=== PATIENT | female | born 1960 | race Caucasian/White ===

== ENCOUNTER 2021-04-30 05:46 | Inpatient (IN) | payer MEDICARE, MEDICAID ==
[~2021-04-30] VITALS: Ht 162.6 cm; Wt 127.0 kg
[~2021-04-30 05:46] MED LIST: ALB0.5UD IH; AMIT25TA10 PO; BACL20TA PO; DULO60CA65 PO; FLUT1DIS INH; FURO-150 PO; HYDR12.5 PO; LACT1CAP26 PO; LEVA15HF4 INH; LEVO150T8 PO; METF-436 PO; MONT10TA21 PO; MYCOL15CR TOP; NORCO10T PO; POTA8TAB8 PO; TERB12GE TOP; TOPI50TA PO; VERA180T PO
[2021-04-30 07:18] LABS: BASOPHILS % (AUTO) 0.4 % (0-1); EOSINOPHILS # (AUTO) 0.4 X10'3 (0-0.9); HEMATOCRIT 36.6 % (35.0-45.0); HEMOGLOBIN 11.9 g/dl (12.0-16.0); LYMPHOCYTES # (AUTO) 2.3 X10'3 (1.1-4.8); LYMPHOCYTES % (AUTO) 20.5 % (21-51); MEAN CORPUSCULAR HEMOGLOBIN 28.4 PG (27.0-31.0); MEAN CORPUSCULAR HGB CONC 32.5 g/dL (33.0-36.5); MEAN CORPUSCULAR VOLUME 87.3 FL (78-98); MEAN PLATELET VOLUME 7.2 FL (7.4-10.4); MONOCYTES % (AUTO) 8.7 % (2-12); NEUTROPHILS # (AUTO) 7.3 X10'3 (1.8-7.7); NEUTROPHILS % (AUTO) 66.4 % (42-75); PLATELET COUNT 240 X10'3 (140-440)
[2021-04-30 07:33] LABS: CLARITY,URINE CLOUDY (Clear); COLOR,URINE YELLOW (Yellow); GLUCOSE, URINE NEGATIVE (Neg); KETONES,URINE NEGATIVE (Neg); LEUKOCYTE ESTERASE ,URINE NEGATIVE (Neg); NITRITES, URINE POSITIVE (Neg); OCCULT BLOOD,URINE TRACE-INTACT (Neg); PH,URINE 8.5 (4.8-8.0); PROTEIN,URINE NEGATIVE (Neg); UROBILINOGEN,URINE 0.2 E.U/dL (0.2-1.0)
[2021-04-30 07:34] LABS: UA COLLECTION TYPE VOIDED
[2021-04-30 07:41] LABS: ALANINE AMINOTRANSFERASE 27 U/L (12-78); ALBUMIN 3.3 G/DL (3.4-5.0); ALBUMIN/GLOBULIN RATIO 0.9 (1.1-1.5); ALKALINE PHOSPHATASE 101 IU/L (46-116); ANION GAP 9 (8-16); ASPARTATE AMINO TRANSFERASE 35 U/L (10-37); BILIRUBIN,TOTAL 0.8 MG/DL (0.1-1.0); BLOOD UREA NITROGEN 22 MG/DL (7-18); BUN/CREATININE RATIO 17.5 (6.6-38.0); CALCIUM 8.7 MG/DL (8.5-10.1); CHLORIDE 103 MMOL/L (99-107); CREATININE 1.26 MG/DL (0.40-0.90); ETHANOL < 0.010 GM/DL (0.0-0.010); GLUCOSE 123 MG/DL (70-104); SODIUM 141 MMOL/L (135-145); TOTAL CARBON DIOXIDE 29.5 MMOL/L (24-32); eGFR 43 ML/MIN
[2021-04-30 07:42] LABS: POTASSIUM 2.9 MMOL/L (3.5-5.1)
[2021-04-30 07:45] LABS: TRIPLE PHOSPHATE CRYST 4+ /HPF (NEGATIVE)
[2021-04-30 07:50] LABS: BACTERIA,URINE 4+ /HPF (Neg)
[2021-04-30 07:51] LABS: WBC,URINE 0-4 /HPF (0-4)
[2021-04-30 07:53] LABS: RBC,URINE 0-2 /HPF (0-2)
[2021-04-30 07:54] LABS: SQUAMOUS EPITHELIAL CELL,UR MODERATE /LPF (FEW)
[2021-04-30 07:57] LABS: URINE AMPHETAMINE SCREEN NEGATIVE (Neg); URINE BARBITUATE SCREEN NEGATIVE (Neg); URINE BENZODIAZEPINES SCREEN NEGATIVE (Neg); URINE CANNABINOID SCREEN NEGATIVE (Neg); URINE COCAINE SCREEN NEGATIVE (Neg); URINE METHADONE SCREEN NEGATIVE (Neg); URINE OPIATE SCREEN POSITIVE (Neg); URINE PHENCYCLIDINE SCREEN NEGATIVE (Neg)
[2021-04-30] MEDS ORDERED: POTASSIUM CHLORIDE 20 MEQ/15 ML oral solution PO ONE (08:00)
[2021-04-30] MEDS ORDERED: potassium Cl 10 mEq/100mL bag IV ONE (08:00)
[2021-04-30] MEDS ORDERED: acetaminophen 325mg tablet PO PRN (08:10)
[2021-04-30] MEDS ORDERED: HYDROcodone/acetaminophen 5mg/325mg tablet PO PRN (08:10)
[2021-04-30] MEDS ORDERED: potassium Cl 20 mEq SR tablet PO PRN (08:10)
[2021-04-30] MEDS ORDERED: mag hydrox/Alum hydrox/simeth 30ml oral suspension PO PRN (08:10)
[2021-04-30] MEDS ORDERED: ondansetron/PF 4mg/2ml inj IV PRN (08:10)
[2021-04-30] MEDS ORDERED: magnesium 2GM in 50ml NS 50 ML IV PRN (08:10)
[2021-04-30] MEDS ORDERED: potassium CL 10mEq/100ml bag 100 ML IV PRN (08:10)
[2021-04-30] MEDS ORDERED: morphine 2 MG/ML inj. syringe IV PRN (08:10)
[2021-04-30] MEDS ORDERED: magnesium Cl slow-release 64mg tablet PO PRN (08:10)
[2021-04-30] MEDS ORDERED: magnesium hydroxide 30ml (MOM) UD suspension PO PRN (08:10)
[2021-04-30] MEDS ORDERED: magnesium 4gm in 100ml NS 100 ML IV PRN (08:10)
[2021-04-30] MEDS ORDERED: CefTRIAXone 2gm/D5W 50ml BAG 50 ML IV ONE (08:20)
[2021-04-30] MEDS: sodium chloride 0.45% 1,000 ML IV SCH ×2 (09:04→09:05)
[2021-04-30] MEDS: enoxaparin 40mg/0.4ml syringe SUBCUT SCH (09:16)
[2021-04-30 09:21] LABS: MAGNESIUM 2.2 MG/DL (1.5-2.4)
--- NOTE | 2021-04-30 10:13 | NUR ---
Attempted to call report to floor, RN reportedly doing pt care. Will call back in 5-10 mins.
--- NOTE | 2021-04-30 10:33 | NUR ---
Report given to ROSALINO Johnston, pt to go to room 359.
[2021-04-30] MEDS ORDERED: MESSAGE TO PHARMACY PO ONE (11:00)
[2021-04-30] MEDS ORDERED: insulin Lispro (HumaLOG) vial - multi-dose SQ SCH (11:00)
[2021-04-30] MEDS ORDERED: dextrose 50%-water 50ml dispensing syringe IV PRN ×2 (11:00)
[2021-04-30] MEDS ORDERED: glucagon, human recombinant 1mg kit SUBCUT PRN (11:00)
[2021-04-30] MEDS ORDERED: DEXTROSE 15 GM of carb/4 tabs (each vial/BOTTLE has 4 tablets) PO PRN ×2 (11:00)
[2021-04-30 12:14] LABS: HEMOGLOBIN A1C 5.7 % (4.5-6.2)
[2021-04-30] MEDS: HYDROcodone/acetaminophen 10/325mg tab PO PRN ×2 (12:25→17:25)
[2021-04-30 14:17] VITALS: BP 126/57
[2021-04-30] MEDS ORDERED: VERA240C2 PO (15:35)
[2021-04-30] MEDS ORDERED: AMIT100T61 PO (15:35)
[2021-04-30] MEDS ORDERED: GABA300C PO (15:49)
[2021-04-30] MEDS ORDERED: PROM25TA14 PO (15:50)
[2021-04-30] MEDS ORDERED: albuterol 2.5 MG/3 ML nebule NEB PRN (16:00)
[2021-04-30] MEDS ORDERED: HYDROcodone/acetaminophen 10/325mg tab PO PRN (16:00)
[2021-04-30] MEDS: lactobacillus rhamnosus 10,000 MMU CELLS/CAPSULE PO SCH (20:00)
[2021-04-30] MEDS: K and/or MAG REPLACEMENT MC SCH (20:00)
[2021-04-30] MEDS: insulin glargine (Lantus) pen - multi-dose SQ SCH (21:00)
[2021-04-30] MEDS: docusate sod 100mg capsule PO SCH (21:12)
[2021-04-30] MEDS: amitriptyline 50mg tablet PO SCH (21:13)
[2021-04-30] MEDS: duloxetine 30mg CAPSULE.DR PO SCH (21:23)
[2021-04-30] MEDS: budesonide 0.5mg/2ml UD nebule IH SCH (21:32)
[2021-05-01] MEDS: HYDROcodone/acetaminophen 10/325mg tab PO PRN ×3 (03:57→17:10)
[2021-05-01] MEDS: sodium chloride 0.45% 1,000 ML IV SCH ×2 (04:32→16:26)
[2021-05-01 06:14] LABS: BASOPHILS # (AUTO) 0.1 X10'3 (0-0.2); BASOPHILS % (AUTO) 0.6 % (0-1); EOSINOPHILS # (AUTO) 0.6 X10'3 (0-0.9); EOSINOPHILS % (AUTO) 6.5 % (0-6); HEMATOCRIT 34.7 % (35.0-45.0); HEMOGLOBIN 11.4 g/dl (12.0-16.0); LYMPHOCYTES # (AUTO) 2.8 X10'3 (1.1-4.8); MEAN CORPUSCULAR HEMOGLOBIN 28.5 PG (27.0-31.0); MEAN CORPUSCULAR HGB CONC 32.8 g/dL (33.0-36.5); MEAN CORPUSCULAR VOLUME 86.8 FL (78-98); MEAN PLATELET VOLUME 7.5 FL (7.4-10.4); MONOCYTES # (AUTO) 0.7 X10'3 (0-0.9); MONOCYTES % (AUTO) 7.5 % (2-12); NEUTROPHILS # (AUTO) 5.5 X10'3 (1.8-7.7); NEUTROPHILS % (AUTO) 56.4 % (42-75); PLATELET COUNT 241 X10'3 (140-440); RED CELL DISTRIBUTION WIDTH 15.2 % (11.5-14.5); WHITE BLOOD COUNT 9.8 X10'3 (4.5-11.0)
[2021-05-01 06:27] LABS: ALANINE AMINOTRANSFERASE 24 U/L (12-78); ALBUMIN/GLOBULIN RATIO 0.8 (1.1-1.5); ALKALINE PHOSPHATASE 99 IU/L (46-116); ANION GAP 8 (8-16); ASPARTATE AMINO TRANSFERASE 30 U/L (10-37); BILIRUBIN,TOTAL 0.8 MG/DL (0.1-1.0); BLOOD UREA NITROGEN 16 MG/DL (7-18); BUN/CREATININE RATIO 14.4 (6.6-38.0); CALCIUM 8.6 MG/DL (8.5-10.1); CHLORIDE 104 MMOL/L (99-107); CREATININE 1.11 MG/DL (0.40-0.90); GLUCOSE 118 MG/DL (70-104); MAGNESIUM 2.1 MG/DL (1.5-2.4); SODIUM 142 MMOL/L (135-145); TOTAL CARBON DIOXIDE 30.3 MMOL/L (24-32); TOTAL PROTEIN 6.7 G/DL (6.4-8.2); eGFR 50 ML/MIN
--- NOTE | 2021-05-01 06:34 | NUR ---
REPORT GIVEN TO FRANDY JERRY.
--- NOTE | 2021-05-01 06:46 | NUR ---
Patient in room [facility] 359. I have received report from Cesario Hinojosa and had the opportunity to ask questions and assume patient care.
[2021-05-01 08:00] VITALS: BP 128/68
[2021-05-01] MEDS: K and/or MAG REPLACEMENT MC SCH ×2 (08:00→20:00)
[2021-05-01] MEDS: enoxaparin 40mg/0.4ml syringe SUBCUT SCH (08:09)
[2021-05-01] MEDS: lactobacillus rhamnosus 10,000 MMU CELLS/CAPSULE PO SCH ×2 (08:09→20:38)
[2021-05-01] MEDS: CefTRIAXone/D5W-Rocephin 1gm 50 ML IV SCH (08:09)
[2021-05-01] MEDS: docusate sod 100mg capsule PO SCH ×2 (08:10→20:38)
[2021-05-01] MEDS: levoTHYROXINE 75mcg tablet PO SCH (08:10)
[2021-05-01] MEDS: montelukast 10mg tablet PO SCH (08:10)
[2021-05-01] MEDS: duloxetine 30mg CAPSULE.DR PO SCH ×2 (08:10→20:39)
[2021-05-01] MEDS: potassium chloride 8mEq ER tablet PO SCH (08:11)
[2021-05-01] MEDS: potassium Cl 20 mEq SR tablet PO PRN ×3 (08:11→21:54)
[2021-05-01] MEDS: furosemide 20MG tablet PO SCH (08:11)
[2021-05-01] MEDS: verapamil SR 120mg (sust. release) tab PO SCH (08:12)
[2021-05-01] MEDS: budesonide 0.5mg/2ml UD nebule IH SCH ×2 (08:35→19:24)
[2021-05-01 12:01] VITALS: BP 134/58
--- NOTE | 2021-05-01 14:55 | NUR ---
PAGER ID: [phone] MESSAGE: Liset Trevino#[phone]- Pt states she would like to go home today is possible. Asked the possibilities of her being DC. Please advise. Brittney Marques [phone]
[2021-05-01] MEDS ORDERED: MELA10TA PO (16:49)
[2021-05-01] MEDS ORDERED: PROM118S5 PO (16:50)
--- NOTE | 2021-05-01 18:16 | NUR ---
Problems reprioritized. Patient report given, questions answered & plan of care reviewed with Cesario JERRY Traveler.
--- NOTE | 2021-05-01 18:41 | NUR ---
REPORT RECEIVED FROM FRANDY JERRY.
[2021-05-01 19:37] VITALS: BP 127/64
[2021-05-01] MEDS: amitriptyline 50mg tablet PO SCH (20:43)
[2021-05-01] MEDS: insulin glargine (Lantus) pen - multi-dose SQ SCH (21:00)
[2021-05-02 00:22] VITALS: BP 127/64
[2021-05-02 06:09] LABS: BASOPHILS % (AUTO) 0.5 % (0-1); EOSINOPHILS # (AUTO) 0.6 X10'3 (0-0.9); EOSINOPHILS % (AUTO) 6.1 % (0-6); HEMATOCRIT 33.2 % (35.0-45.0); HEMOGLOBIN 10.9 g/dl (12.0-16.0); LYMPHOCYTES # (AUTO) 2.4 X10'3 (1.1-4.8); LYMPHOCYTES % (AUTO) 26.4 % (21-51); MEAN CORPUSCULAR HEMOGLOBIN 28.4 PG (27.0-31.0); MEAN CORPUSCULAR HGB CONC 32.9 g/dL (33.0-36.5); MEAN CORPUSCULAR VOLUME 86.6 FL (78-98); MEAN PLATELET VOLUME 7.4 FL (7.4-10.4); MONOCYTES # (AUTO) 0.8 X10'3 (0-0.9); MONOCYTES % (AUTO) 8.3 % (2-12); NEUTROPHILS # (AUTO) 5.4 X10'3 (1.8-7.7); NEUTROPHILS % (AUTO) 58.7 % (42-75); PLATELET COUNT 210 X10'3 (140-440); RED BLOOD COUNT 3.83 X10'6 (4.20-5.60); WHITE BLOOD COUNT 9.2 X10'3 (4.5-11.0)
[2021-05-02 06:14] LABS: ALANINE AMINOTRANSFERASE 19 U/L (12-78); ALBUMIN 2.8 G/DL (3.4-5.0); ALBUMIN/GLOBULIN RATIO 0.8 (1.1-1.5); ALKALINE PHOSPHATASE 90 IU/L (46-116); ANION GAP 10 (8-16); ASPARTATE AMINO TRANSFERASE 22 U/L (10-37); BILIRUBIN,TOTAL 0.7 MG/DL (0.1-1.0); BLOOD UREA NITROGEN 15 MG/DL (7-18); BUN/CREATININE RATIO 14.7 (6.6-38.0); CALCIUM 8.3 MG/DL (8.5-10.1); CHLORIDE 107 MMOL/L (99-107); CREATININE 1.02 MG/DL (0.40-0.90); GLUCOSE 112 MG/DL (70-104); MAGNESIUM 2.1 MG/DL (1.5-2.4); POTASSIUM 3.4 MMOL/L (3.5-5.1); SODIUM 142 MMOL/L (135-145); TOTAL CARBON DIOXIDE 25.4 MMOL/L (24-32); TOTAL PROTEIN 6.2 G/DL (6.4-8.2); eGFR 55 ML/MIN
--- NOTE | 2021-05-02 06:16 | NUR ---
REPORT GIVEN TO ANSELMO JERRY.
[2021-05-02] MEDS: budesonide 0.5mg/2ml UD nebule IH SCH (07:05)
[2021-05-02 08:00] VITALS: BP 118/61
[2021-05-02] MEDS: K and/or MAG REPLACEMENT MC SCH (08:00)
[2021-05-02] MEDS: CefTRIAXone/D5W-Rocephin 1gm 50 ML IV SCH (08:00)
[2021-05-02] MEDS: HYDROcodone/acetaminophen 10/325mg tab PO PRN (10:09)
[2021-05-02] MEDS: duloxetine 30mg CAPSULE.DR PO SCH (10:10)
[2021-05-02] MEDS: verapamil SR 120mg (sust. release) tab PO SCH (10:10)
[2021-05-02] MEDS: furosemide 20MG tablet PO SCH (10:10)
[2021-05-02] MEDS: docusate sod 100mg capsule PO SCH (10:10)
[2021-05-02] MEDS: potassium chloride 8mEq ER tablet PO SCH (10:11)
[2021-05-02] MEDS: montelukast 10mg tablet PO SCH (10:11)
[2021-05-02] MEDS: lactobacillus rhamnosus 10,000 MMU CELLS/CAPSULE PO SCH (10:11)
[2021-05-02] MEDS: potassium Cl 20 mEq SR tablet PO PRN (10:11)
[2021-05-02] MEDS: levoTHYROXINE 75mcg tablet PO SCH (10:11)
[2021-05-02] MEDS: enoxaparin 40mg/0.4ml syringe SUBCUT SCH (10:13)
--- NOTE | 2021-05-02 10:25 | NUR ---
DM consult: Pt with T2DM, well controlled with A1c 5.7%. DM education not warranted at this time. Recommend continuing with regular diet. Will continue to follow. Addendum: 05/02/21 at [address] Amended: Links added.
[2021-05-02 11:00] VITALS: BP 119/59
[2021-05-02] MEDS ORDERED: LEVO500T90 PO (11:34)
[2021-05-02] MEDS ORDERED: levoFLOXACIN 500mg tablet PO ONE (12:25)
--- NOTE | 2021-05-02 12:45 | NUR ---
Student documentation: I have reviewed and agree with all interventions, assessments performed and documented by Danielle Student Nurse.
--- NOTE | 2021-05-02 13:30 | NUR ---
Patient was discharged with a family/friend, but I walked her down to the front door myself. The patient stated her understanding of discharge instruction/teaching, and stated she had no questions. She left with all of her belongings, she had no shoes, IV was taken out. The patient stated she would picker feeder her new prescription from her pharmacy.
--- NOTE | 2021-05-02 14:13 | NUR ---
reviewed discharge note and intervention by tyra Santos. I agree and approve of documentation
== END 2021-05-02 13:30 | disposition home or self-care (01) | DRG 682 ==
LOC: ER 05:47 → ED HOLD 08:18 → SUR 3N 10:47
PROVIDERS: ADMIT Internal Medicine; ATTEND Internal Medicine
PROC: 5A09357 Assistance with Respiratory Ventilation, Less than 24 Consecutive Hours, Continuous Positive Airway Pressure (ICD-10-PCS; principal; 2021-04-30)
PROC: 5A09357 Assistance with Respiratory Ventilation, Less than 24 Consecutive Hours, Continuous Positive Airway Pressure (ICD-10-PCS; 2021-05-01)
DX: N17.0 Acute kidney failure with tubular necrosis (principal); G93.41 Metabolic encephalopathy; N39.0 Urinary tract infection, site not specified; Z68.42 Body mass index [BMI] 45.0-49.9, adult; E87.6 Hypokalemia; E86.0 Dehydration; R40.4 Transient alteration of awareness; E78.5 Hyperlipidemia, unspecified; E11.9 Type 2 diabetes mellitus without complications; G47.30 Sleep apnea, unspecified; F17.210 Nicotine dependence, cigarettes, uncomplicated; J44.9 Chronic obstructive pulmonary disease, unspecified; E66.01 Morbid (severe) obesity due to excess calories; I10 Essential (primary) hypertension; G89.29 Other chronic pain; M54.9 Dorsalgia, unspecified; Z80.0 Family history of malignant neoplasm of digestive organs; Z82.3 Family history of stroke; Z82.5 Family history of asthma and other chronic lower respiratory diseases; Z79.899 Other long term (current) drug therapy; Z88.8 Allergy status to other drugs, medicaments and biological substances; Z88.6 Allergy status to analgesic agent
CPT/HCPCS: 36415; 70450; 71045; 80053; 80305; 80320; 81001; 82948; 83036; 83605; 83735; 84145; 85025; 87040; 87077; 87081; 87088; 87186; 93005; 94640; 94660; 94760; 97110; 97116; 97162; 99285; G0378; J0696; J1650; J1815; J3480; J3490

== ENCOUNTER 2022-03-29 11:55 | Emergency (ER) | payer MEDICARE, MEDICAID ==
[~2022-03-29] VITALS: Ht 152.4 cm; Wt 148.0 kg
[~2022-03-29 11:55] MED LIST changes: +AMIT100T61 PO; -AMIT25TA10 PO; +AZIT500T9 PO; -BACL20TA PO; +CHLO25TA10 PO; +DOCU-22 PO; +DULO60CA60 PO; -DULO60CA65 PO; -FLUT1DIS INH; +FLUT1DIS20 INH; -HYDR12.5 PO; -LACT1CAP26 PO; -LEVA15HF4 INH; +LEVA15HF6 PO; +LISI10TA27 PO; +METF-1203 PO; -METF-436 PO; +METH-798 PO; +MONT-40 PO; -MONT10TA21 PO; -MYCOL15CR TOP; +POTA8CAP20 PO; -POTA8TAB8 PO; +PROM25TA14 PO; -TERB12GE TOP; -TOPI50TA PO; +TOPI50TA24 PO; -VERA180T PO; +VERA240C2 PO
[2022-03-29 12:50] LABS: BASOPHILS # (AUTO) 0.1 X10'3 (0-0.2); BASOPHILS % (AUTO) 0.4 % (0-1); EOSINOPHILS # (AUTO) 0.5 X10'3 (0-0.9); EOSINOPHILS % (AUTO) 3.9 % (0-6); HEMATOCRIT 38.3 % (35.0-45.0); HEMOGLOBIN 12.3 g/dl (12.0-16.0); LYMPHOCYTES # (AUTO) 2.3 X10'3 (1.1-4.8); MEAN CORPUSCULAR HEMOGLOBIN 29.5 PG (27.0-31.0); MEAN CORPUSCULAR HGB CONC 32.2 g/dL (33.0-36.5); MEAN CORPUSCULAR VOLUME 91.6 FL (78-98); MEAN PLATELET VOLUME 7.2 FL (7.4-10.4); MONOCYTES # (AUTO) 0.7 X10'3 (0-0.9); MONOCYTES % (AUTO) 5.9 % (2-12); NEUTROPHILS # (AUTO) 8.5 X10'3 (1.8-7.7); NEUTROPHILS % (AUTO) 70.8 % (42-75); PLATELET COUNT 217 X10'3 (140-440); RED BLOOD COUNT 4.18 X10'6 (4.20-5.60); RED CELL DISTRIBUTION WIDTH 14.4 % (11.5-14.5)
[2022-03-29 12:59] LABS: ALANINE AMINOTRANSFERASE 18 U/L (12-78); ALBUMIN 3.6 G/DL (3.4-5.0); ALKALINE PHOSPHATASE 114 IU/L (46-116); ASPARTATE AMINO TRANSFERASE 23 U/L (10-37); BILIRUBIN,TOTAL 0.6 MG/DL (0.1-1.0); BLOOD UREA NITROGEN 10 MG/DL (7-18); BUN/CREATININE RATIO 9.1 (6.6-38.0); ETHANOL < 0.010 GM/DL (0.0-0.010); GLUCOSE 106 MG/DL (70-104); POTASSIUM 3.7 MMOL/L (3.5-5.1); SODIUM 137 MMOL/L (135-145); TOTAL CARBON DIOXIDE 25.6 MMOL/L (24-32); TOTAL PROTEIN 7.3 G/DL (6.4-8.2); eGFR 50 ML/MIN
[2022-03-29 13:01] LABS: AMMONIA < 10 UMOL/L (11-32)
[2022-03-29 13:04] LABS: LACTIC SEPSIS 3.1 MMOL/L (0.4-2.0)
[2022-03-29] MEDS ORDERED: normal saline 1000ml 1,000 ML IV ONE (13:15)
[2022-03-29 13:22] LABS: ANION GAP 9 (8-16); CHLORIDE 102 MMOL/L (99-107)
[2022-03-29 13:58] LABS: ABG BASE EXCESS -2.6 mmol/L (-2.0-2.0); ABG HCO3 22.2 mmol/L (22.0-26.0); ABG OXYGEN SATURATION 94.8 % (94-97); ABG PCO2 (T) 38.1 mmHg (32.0-45.0); ABG PO2 (T) 72.3 mmHg (75.0-100.0); ALLEN'S TEST POSITIVE; FCOHb 0.2 % (0.0-3.9); FMetHb 0.3 % (0.0-1.5); FO2Hb 94.3 % (94-97); PATIENT TEMPERATURE 36.8
[2022-03-29 14:58] LABS: CLARITY,URINE CLOUDY (Clear); COLOR,URINE YELLOW (Yellow); GLUCOSE, URINE NEGATIVE (Neg); KETONES,URINE TRACE mg/dl (Neg); LEUKOCYTE ESTERASE ,URINE SMALL (Neg); NITRITES, URINE POSITIVE (Neg); OCCULT BLOOD,URINE TRACE-INTACT (Neg); PROTEIN,URINE TRACE mg/dl (Neg); UROBILINOGEN,URINE 0.2 E.U/dL (0.2-1.0)
[2022-03-29 15:06] LABS: UA COLLECTION TYPE CLN CATCH MIDSTREAM; URINE AMPHETAMINE SCREEN NEGATIVE (Neg); URINE BARBITUATE SCREEN NEGATIVE (Neg); URINE BENZODIAZEPINES SCREEN NEGATIVE (Neg); URINE CANNABINOID SCREEN NEGATIVE (Neg); URINE COCAINE SCREEN NEGATIVE (Neg); URINE METHADONE SCREEN NEGATIVE (Neg); URINE OPIATE SCREEN POSITIVE (Neg); URINE PHENCYCLIDINE SCREEN NEGATIVE (Neg)
[2022-03-29 15:10] LABS: BACTERIA,URINE 3+ /HPF (Neg)
[2022-03-29 15:11] LABS: SQUAMOUS EPITHELIAL CELL,UR FEW /LPF (FEW)
--- NOTE | 2022-03-29 15:41 | NUR ---
Tele neuro in progress at this time.
[2022-03-29 16:44] VITALS: BP 177/118
== END 2022-03-29 16:45 | disposition home or self-care (01) ==
LOC: ER 11:55
DX: R41.0 Disorientation, unspecified (principal); I10 Essential (primary) hypertension; J44.9 Chronic obstructive pulmonary disease, unspecified; E11.9 Type 2 diabetes mellitus without complications; G89.29 Other chronic pain; M54.50 Low back pain, unspecified; Z88.5 Allergy status to narcotic agent; Z88.6 Allergy status to analgesic agent
CPT/HCPCS: 36415; 36600; 70450; 71045; 80053; 80305; 80320; 81001; 82140; 82803; 82948; 83605; 84145; 85018; 85025; 87040; 87077; 87088; 87186; 93005; 95999; 96360; 99285; J7030

== ENCOUNTER 2022-04-14 10:20 | Day surgery (SDC) | payer MEDICARE, MEDICAID ==
[~2022-04-14] VITALS: Ht 149.9 cm; Wt 148.2 kg
[2022-04-14 10:25] VITALS: BP 116/67
[2022-04-14 10:32] VITALS: BP 172/89
[2022-04-14 10:35] VITALS: BP 112/69
[2022-04-14] MEDS ORDERED: fentaNYL/PF 50MCG/1 ML 2ML syringe ONE (10:36)
[2022-04-14] MEDS ORDERED: MIDAZolam 1 MG/ML 5ML VIAL ONE (10:36)
[2022-04-14] MEDS ORDERED: diphenhydrAMINE 50 mg/ml inj ONE (10:37)
[2022-04-14 10:45] VITALS: BP 121/73
[2022-04-14] MEDS ORDERED: TIOT18CA3 INH (11:05)
[2022-04-14] MEDS ORDERED: BENZ-38 PO (11:06)
[2022-04-14] MEDS ORDERED: SPIR25TA5 PO (11:07)
[2022-04-14] MEDS ORDERED: ACET-812 PO (11:08)
== END 2022-04-14 11:54 | disposition home or self-care (01) ==
LOC: GI LAB 10:20
PROVIDERS: ATTEND Internal Medicine Gastroenterology
DX: Z12.11 Encounter for screening for malignant neoplasm of colon (principal); K63.5 Polyp of colon; K57.30 Diverticulosis of large intestine without perforation or abscess without bleeding; K52.9 Noninfective gastroenteritis and colitis, unspecified; K63.0 Abscess of intestine; J45.909 Unspecified asthma, uncomplicated; I10 Essential (primary) hypertension; E11.9 Type 2 diabetes mellitus without complications; E66.9 Obesity, unspecified; Z68.44 Body mass index [BMI] 60.0-69.9, adult; M85.80 Other specified disorders of bone density and structure, unspecified site; Z72.89 Other problems related to lifestyle; Z96.652 Presence of left artificial knee joint; Z98.890 Other specified postprocedural states; Z88.8 Allergy status to other drugs, medicaments and biological substances; Z99.81 Dependence on supplemental oxygen; Z79.899 Other long term (current) drug therapy; Z79.84 Long term (current) use of oral hypoglycemic drugs; Z80.0 Family history of malignant neoplasm of digestive organs; Z82.3 Family history of stroke; Z82.5 Family history of asthma and other chronic lower respiratory diseases
CPT/HCPCS: 45385; 88305; 99153; C1889; G0500; J2250; J3010; J7030; Z7512; 99152; A4620; J1200

== ENCOUNTER 2022-07-17 10:39 | Inpatient (IN) | payer MEDICARE, MEDICAID ==
[~2022-07-17] VITALS: Ht 165.1 cm; Wt 159.1 kg
[~2022-07-17 10:39] MED LIST changes: +ACET-812 PO; -AZIT500T9 PO; +BENZ-38 PO; +SPIR25TA5 PO; +TIOT18CA3 INH; +TOPI-253 PO; -TOPI50TA24 PO
--- NOTE | 2022-07-17 10:54 | NUR ---
PER DR GAO ORD EKG STAT.
[2022-07-17] MEDS ORDERED: CefTRIAXone 2gm/D5W 50ml BAG 50 ML IV ONE (12:15)
[2022-07-17] MEDS ORDERED: normal saline 1000ML IV soln IVB ONE (12:15)
[2022-07-17] MEDS ORDERED: azithromycin/NS 500mg/250ml 250 ML IV ONE (12:15)
[2022-07-17] MEDS ORDERED: methylPREDNISolone sod succ 125mg/2ml vial IV ONE (12:15)
[2022-07-17 12:39] LABS: BASOPHILS # (AUTO) 0.1 X10'3 (0-0.2); BASOPHILS % (AUTO) 0.7 % (0-1); EOSINOPHILS # (AUTO) 0.4 X10'3 (0-0.9); EOSINOPHILS % (AUTO) 4.6 % (0-6); HEMATOCRIT 32.9 % (35.0-45.0); HEMOGLOBIN 10.9 g/dl (12.0-16.0); LYMPHOCYTES # (AUTO) 1.8 X10'3 (1.1-4.8); MEAN CORPUSCULAR HEMOGLOBIN 30.6 PG (27.0-31.0); MEAN CORPUSCULAR HGB CONC 33.2 g/dL (33.0-36.5); MEAN CORPUSCULAR VOLUME 92.4 FL (78-98); MEAN PLATELET VOLUME 6.9 FL (7.4-10.4); MONOCYTES # (AUTO) 0.7 X10'3 (0-0.9); MONOCYTES % (AUTO) 7.8 % (2-12); NEUTROPHILS # (AUTO) 5.7 X10'3 (1.8-7.7); NEUTROPHILS % (AUTO) 65.9 % (42-75); PLATELET COUNT 222 X10'3 (140-440); RED BLOOD COUNT 3.56 X10'6 (4.20-5.60); RED CELL DISTRIBUTION WIDTH 13.2 % (11.5-14.5); WHITE BLOOD COUNT 8.7 X10'3 (4.5-11.0)
[2022-07-17 12:52] LABS: APTT 28 SECONDS (22-32); D-DIMER 0.51 MG/L FEU (0-0.50)
--- NOTE | 2022-07-17 12:53 | NUR ---
RN PAGED RT TO COLLECT ABG.
[2022-07-17 13:01] LABS: ALANINE AMINOTRANSFERASE 14 U/L (12-78); ALBUMIN 3.2 G/DL (3.4-5.0); ALKALINE PHOSPHATASE 106 IU/L (46-116); ANION GAP 3 (8-16); ASPARTATE AMINO TRANSFERASE 13 U/L (10-37); BILIRUBIN,TOTAL 0.5 MG/DL (0.1-1.0); BLOOD UREA NITROGEN 15 MG/DL (7-18); BUN/CREATININE RATIO 12.1 (10.0-20.0); CALCIUM 8.7 MG/DL (8.5-10.1); CHLORIDE 99 MMOL/L (99-107); CREATININE 1.24 MG/DL (0.40-0.90); GLUCOSE 113 MG/DL (70-104); POTASSIUM 4.3 MMOL/L (3.5-5.1); SODIUM 131 MMOL/L (135-145); TOTAL PROTEIN 6.3 G/DL (6.4-8.2); eGFR 44 ML/MIN
[2022-07-17 13:12] LABS: ABG BASE EXCESS -3.1 mmol/L (-2.0-2.0); ABG HCO3 21.7 mmol/L (22.0-26.0); ABG PCO2 (T) 37.9 mmHg (32.0-45.0); ABG PO2 (T) 111.1 mmHg (75.0-100.0); ALLEN'S TEST POSITIVE; FCOHb 0.3 % (0.0-3.9); FLOW 2 L/min; FMetHb 0.3 % (0.0-1.5); FO2Hb 97.4 % (94-97); TOTAL HEMOGLOBIN 12.1 G/dl (12.0-16.0)
[2022-07-17 14:08] LABS: CLARITY,URINE CLEAR (Clear); COLOR,URINE YELLOW (Yellow); GLUCOSE, URINE NEGATIVE (Neg); KETONES,URINE NEGATIVE (Neg); LEUKOCYTE ESTERASE ,URINE NEGATIVE (Neg); NITRITES, URINE NEGATIVE (Neg); OCCULT BLOOD,URINE NEGATIVE (Neg); PROTEIN,URINE NEGATIVE (Neg); UROBILINOGEN,URINE 0.2 E.U/dL (0.2-1.0)
--- NOTE | 2022-07-17 14:11 | NUR ---
PT LEFT WRIST IV 20G. RN CALLED CT AND THEY WILL ASSESS HER IV TO SEE IF IT IS SUFFICIENT AND NOTIFY RN IF ANOTHER ONE IS NEEDED.
[2022-07-17] MEDS ORDERED: iohexol 350MG/ML 100ml bottle IV ONE (14:14)
[2022-07-17 14:16] LABS: UA COLLECTION TYPE CLN CATCH MIDSTREAM
[2022-07-17 14:23] LABS: URINE AMPHETAMINE SCREEN NEGATIVE (Neg); URINE BARBITUATE SCREEN NEGATIVE (Neg); URINE BENZODIAZEPINES SCREEN NEGATIVE (Neg); URINE CANNABINOID SCREEN NEGATIVE (Neg); URINE COCAINE SCREEN NEGATIVE (Neg); URINE METHADONE SCREEN NEGATIVE (Neg); URINE OPIATE SCREEN POSITIVE (Neg); URINE PHENCYCLIDINE SCREEN NEGATIVE (Neg)
[2022-07-17] MEDS ORDERED: ondansetron/PF 4mg/2ml inj IV ONE (14:50)
[2022-07-17] MEDS ORDERED: HYDROcodone/acetaminophen 10/325mg tab PO ONE (14:50)
[2022-07-17] MEDS ORDERED: MESSAGE TO NURSING PO ONE (14:50)
[2022-07-17] MEDS ORDERED: insulin Lispro (HumaLOG) vial - multi-dose SQ SCH (16:35)
[2022-07-17] MEDS ORDERED: ondansetron/PF 4mg/2ml inj IV PRN (16:35)
[2022-07-17] MEDS ORDERED: acetaminophen 325mg tablet PO PRN ×2 (16:35)
[2022-07-17] MEDS ORDERED: mag hydrox/Alum hydrox/simeth 30ml oral suspension PO PRN (16:35)
[2022-07-17] MEDS ORDERED: morphine 2 MG/ML inj. syringe IV PRN ×2 (16:35)
[2022-07-17] MEDS ORDERED: MESSAGE TO PHARMACY PO ONE (16:35)
[2022-07-17] MEDS ORDERED: glucagon, human recombinant 1mg kit SUBCUT PRN (16:35)
[2022-07-17] MEDS ORDERED: HYDROcodone/acetaminophen 5mg/325mg tablet PO PRN (16:35)
[2022-07-17] MEDS ORDERED: dextrose 50%-water 50ml dispensing syringe IV PRN ×2 (16:35)
[2022-07-17] MEDS ORDERED: DEXTROSE 15 GM of carb/4 tabs (each vial/BOTTLE has 4 tablets) PO PRN ×2 (16:35)
[2022-07-17] MEDS ORDERED: magnesium hydroxide 30ml (MOM) UD suspension PO PRN (16:35)
[2022-07-17 17:06] LABS: HEMOGLOBIN A1C 5.2 % (4.5-6.2)
--- NOTE | 2022-07-17 17:19 | NUR ---
PER DR CRAIG TENA BIPAP AND PAGE RT.
--- NOTE | 2022-07-17 17:33 | NUR ---
RN PAGED RT TO SET UP BIPAP.
[2022-07-17 19:15] VITALS: BP 109/72
[2022-07-17] MEDS: docusate sod 100mg capsule PO SCH (20:00)
[2022-07-17] MEDS ORDERED: insulin glargine (Lantus) pen - multi-dose SQ SCH (21:00)
[2022-07-17 22:00] VITALS: BP 135/71
[2022-07-17] MEDS: HYDROcodone/acetaminophen 10/325mg tab PO PRN (23:17)
[2022-07-17] MEDS: heparin, porcine 5000 units/ml vial SQ SCH (23:18)
[2022-07-18] MEDS: HYDROcodone/acetaminophen 10/325mg tab PO PRN ×3 (03:17→11:53)
[2022-07-18 05:02] LABS: BASOPHILS % (AUTO) 0.1 % (0-1); EOSINOPHILS % (AUTO) 0 % (0-6); HEMATOCRIT 31.8 % (35.0-45.0); HEMOGLOBIN 10.6 g/dl (12.0-16.0); LYMPHOCYTES # (AUTO) 1.1 X10'3 (1.1-4.8); LYMPHOCYTES % (AUTO) 22.2 % (21-51); MEAN CORPUSCULAR HEMOGLOBIN 30.4 PG (27.0-31.0); MEAN CORPUSCULAR HGB CONC 33.2 g/dL (33.0-36.5); MEAN CORPUSCULAR VOLUME 91.4 FL (78-98); MEAN PLATELET VOLUME 7.2 FL (7.4-10.4); MONOCYTES # (AUTO) 0.2 X10'3 (0-0.9); MONOCYTES % (AUTO) 4.4 % (2-12); NEUTROPHILS # (AUTO) 3.5 X10'3 (1.8-7.7); NEUTROPHILS % (AUTO) 73.3 % (42-75); PLATELET COUNT 214 X10'3 (140-440); RED BLOOD COUNT 3.48 X10'6 (4.20-5.60); WHITE BLOOD COUNT 4.8 X10'3 (4.5-11.0)
[2022-07-18 05:15] LABS: ALBUMIN 2.9 G/DL (3.4-5.0); ANION GAP 6 (8-16); BLOOD UREA NITROGEN 14 MG/DL (7-18); BUN/CREATININE RATIO 12.7 (10.0-20.0); CALCIUM 8.6 MG/DL (8.5-10.1); CHLORIDE 101 MMOL/L (99-107); GLUCOSE 126 MG/DL (70-104); POTASSIUM 4.4 MMOL/L (3.5-5.1); SODIUM 133 MMOL/L (135-145); TOTAL CARBON DIOXIDE 25.9 MMOL/L (24-32); eGFR 50 ML/MIN
[2022-07-18 06:00] VITALS: BP 126/55
--- NOTE | 2022-07-18 06:09 | NUR ---
Problems reprioritized. Patient report given, questions answered & plan of care reviewed with OLIVIA Jasmine.
--- NOTE | 2022-07-18 06:31 | NUR ---
Patient in room [facility] 4008. I have received report from ROSALINO Gallo and had the opportunity to ask questions and assume patient care.
[2022-07-18] MEDS: docusate sod 100mg capsule PO SCH (08:00)
[2022-07-18] MEDS: heparin, porcine 5000 units/ml vial SQ SCH (08:07)
--- NOTE | 2022-07-18 08:56 | NUR ---
SALES PROJECT MANAGER sent paged to EEG.
[2022-07-18 10:00] VITALS: BP 152/80
[2022-07-18] MEDS ORDERED: KEP500T PO (11:34)
[2022-07-18] MEDS ORDERED: FLUT1DIS10 PO (12:24)
--- NOTE | 2022-07-18 13:07 | NUR ---
Patient discharging home. Discharge information was review with patient, whom verbalize understanding. Staff assisted patient to personal vehicle.
== END 2022-07-18 13:07 | disposition home health service (06) | DRG 101 ==
LOC: ER 10:40 → ORTHO 4S 16:31 → UNDOADMIN 16:31 → ORTHO 4S 16:34 → UNDODISIN 07-18 13:07
PROVIDERS: ADMIT Internal Medicine; ATTEND Internal Medicine
PROC: 5A09357 Assistance with Respiratory Ventilation, Less than 24 Consecutive Hours, Continuous Positive Airway Pressure (ICD-10-PCS; principal; 2022-07-17)
PROC: B32T1ZZ Computerized Tomography (CT Scan) of Left Pulmonary Artery using Low Osmolar Contrast (ICD-10-PCS; 2022-07-17)
PROC: B3201ZZ Computerized Tomography (CT Scan) of Thoracic Aorta using Low Osmolar Contrast (ICD-10-PCS; 2022-07-17)
PROC: B32S1ZZ Computerized Tomography (CT Scan) of Right Pulmonary Artery using Low Osmolar Contrast (ICD-10-PCS; 2022-07-17)
DX: R56.9 Unspecified convulsions (principal); G93.49 Other encephalopathy; E66.2 Morbid (severe) obesity with alveolar hypoventilation; J44.1 Chronic obstructive pulmonary disease with (acute) exacerbation; Z68.43 Body mass index [BMI] 50.0-59.9, adult; E03.9 Hypothyroidism, unspecified; G47.00 Insomnia, unspecified; E11.9 Type 2 diabetes mellitus without complications; M54.9 Dorsalgia, unspecified; G89.29 Other chronic pain; I10 Essential (primary) hypertension; Z79.899 Other long term (current) drug therapy; Z80.0 Family history of malignant neoplasm of digestive organs; Z82.3 Family history of stroke; Z82.5 Family history of asthma and other chronic lower respiratory diseases; Z99.81 Dependence on supplemental oxygen; Z88.8 Allergy status to other drugs, medicaments and biological substances; Z90.49 Acquired absence of other specified parts of digestive tract
CPT/HCPCS: 36415; 36600; 70450; 71045; 71275; 80048; 80053; 80305; 81003; 82803; 82948; 83036; 83605; 83880; 84484; 85018; 85025; 85379; 85610; 85730; 87040; 87081; 87502; 87503; 94660; 94760; 97116; 97161; 97530; 99285; A6258; G0378; J0456; J0696; J1644; J1815; J2405; J2930; J3490; J7030; Q9967

== ENCOUNTER 2022-08-14 09:54 | Inpatient (IN) | payer MEDICARE, MEDICAID ==
[~2022-08-14] VITALS: Ht 165.1 cm; Wt 140.9 kg
[~2022-08-14 09:54] MED LIST changes: -ALB0.5UD IH; -BENZ-38 PO; +FLUT1DIS10 PO; -FLUT1DIS20 INH; -FURO-150 PO; +KEP500T PO; -TIOT18CA3 INH
[2022-08-14] MEDS ORDERED: methylPREDNISolone sod succ 125mg/2ml vial IV ONE (10:05)
[2022-08-14 10:45] LABS: BASOPHILS % (AUTO) 0.5 % (0-1); EOSINOPHILS # (AUTO) 0.4 X10'3 (0-0.9); EOSINOPHILS % (AUTO) 6.2 % (0-6); HEMATOCRIT 39.6 % (35.0-45.0); HEMOGLOBIN 13.1 g/dl (12.0-16.0); LYMPHOCYTES # (AUTO) 1.6 X10'3 (1.1-4.8); LYMPHOCYTES % (AUTO) 22.9 % (21-51); MEAN CORPUSCULAR HEMOGLOBIN 30.4 PG (27.0-31.0); MEAN PLATELET VOLUME 6.6 FL (7.4-10.4); MONOCYTES # (AUTO) 0.4 X10'3 (0-0.9); MONOCYTES % (AUTO) 6.1 % (2-12); NEUTROPHILS # (AUTO) 4.4 X10'3 (1.8-7.7); NEUTROPHILS % (AUTO) 64.3 % (42-75); PLATELET COUNT 235 X10'3 (140-440); RED BLOOD COUNT 4.31 X10'6 (4.20-5.60); RED CELL DISTRIBUTION WIDTH 13.6 % (11.5-14.5); WHITE BLOOD COUNT 6.9 X10'3 (4.5-11.0)
[2022-08-14 11:04] LABS: ALANINE AMINOTRANSFERASE 15 U/L (12-78); ALBUMIN 3.5 G/DL (3.4-5.0); ALBUMIN/GLOBULIN RATIO 0.9 (1.1-1.5); ALKALINE PHOSPHATASE 109 IU/L (46-116); ANION GAP 10 (8-16); ASPARTATE AMINO TRANSFERASE 14 U/L (10-37); BILIRUBIN,TOTAL 0.5 MG/DL (0.1-1.0); BLOOD UREA NITROGEN 20 MG/DL (7-18); BUN/CREATININE RATIO 15.4 (10.0-20.0); CALCIUM 9.1 MG/DL (8.5-10.1); CHLORIDE 105 MMOL/L (99-107); GLUCOSE 112 MG/DL (70-104); POTASSIUM 3.7 MMOL/L (3.5-5.1); SODIUM 139 MMOL/L (135-145); TOTAL CARBON DIOXIDE 24.1 MMOL/L (24-32); TOTAL PROTEIN 7.2 G/DL (6.4-8.2); eGFR 41 ML/MIN
--- NOTE | 2022-08-14 12:32 | NUR ---
RT PAGED FOR ABG. RT IN TO PERFORM ABG HOWEVER PT IS IN CT. PLEASE PAGE RT WHEN PT RETURNS.
[2022-08-14] MEDS ORDERED: iohexol 350MG/ML 100ml bottle IV ONE (12:33)
[2022-08-14 13:16] LABS: ABG BASE EXCESS -6.4 mmol/L (-2.0-2.0); ABG HCO3 17.9 mmol/L (22.0-26.0); ABG OXYGEN SATURATION 95.4 % (94-97); ABG PCO2 (T) 31.9 mmHg (32.0-45.0); ABG PO2 (T) 78.3 mmHg (75.0-100.0); ALLEN'S TEST POSITIVE; FCOHb 0.4 % (0.0-3.9); FMetHb 0.3 % (0.0-1.5); FO2Hb 94.7 % (94-97); PATIENT TEMPERATURE 36.7; TOTAL HEMOGLOBIN 13.2 G/dl (12.0-16.0)
[2022-08-14] MEDS ORDERED: HYDROcodone/acetaminophen 5mg/325mg tablet PO PRN (13:25)
[2022-08-14] MEDS ORDERED: potassium Cl 40MEQ/1/2NS 520ml 520 ML IV PRN (13:25)
[2022-08-14] MEDS ORDERED: mag hydrox/Alum hydrox/simeth 30ml oral suspension PO PRN (13:25)
[2022-08-14] MEDS ORDERED: potassium Cl 20 mEq SR tablet PO PRN ×2 (13:25)
[2022-08-14] MEDS ORDERED: magnesium Cl slow-release 64mg tablet PO PRN (13:25)
[2022-08-14] MEDS ORDERED: magnesium 2GM in 50ml NS 50 ML IV PRN (13:25)
[2022-08-14] MEDS ORDERED: acetaminophen 325mg tablet PO PRN (13:25)
[2022-08-14] MEDS ORDERED: magnesium 4gm in 100ml NS 100 ML IV PRN (13:25)
[2022-08-14] MEDS ORDERED: magnesium hydroxide 30ml (MOM) UD suspension PO PRN (13:25)
[2022-08-14] MEDS ORDERED: LEVE500T PO (14:02)
--- NOTE | 2022-08-14 15:00 | NUR ---
Pt has been incont and unable to use bedpan as unable to follow instruttions. Pts skin cleansed and pt placed on clean hospital bed. Pure wick placed as pt incont.
--- NOTE | 2022-08-14 16:15 | NUR ---
Pt repositioned. Pt status remains unchanged and unable to answer questions and remains sleepy.
--- NOTE | 2022-08-14 18:40 | NUR ---
pt vomited bile, administered zofran and set up suction. pt able to cough well. assuemd care from ángela spencer
[2022-08-14] MEDS: ondansetron/PF 4mg/2ml inj IV PRN (18:42)
[2022-08-14 19:08] LABS: CLARITY,URINE CLEAR (Clear); COLOR,URINE YELLOW (Yellow); GLUCOSE, URINE NEGATIVE (Neg); KETONES,URINE NEGATIVE (Neg); LEUKOCYTE ESTERASE ,URINE NEGATIVE (Neg); NITRITES, URINE NEGATIVE (Neg); OCCULT BLOOD,URINE NEGATIVE (Neg); PH,URINE 7.5 (4.8-8.0); PROTEIN,URINE NEGATIVE (Neg); UROBILINOGEN,URINE 0.2 E.U/dL (0.2-1.0)
[2022-08-14 19:13] LABS: UA COLLECTION TYPE URINAL
[2022-08-14 19:14] LABS: URINE AMPHETAMINE SCREEN NEGATIVE (Neg); URINE BARBITUATE SCREEN NEGATIVE (Neg); URINE BENZODIAZEPINES SCREEN NEGATIVE (Neg); URINE CANNABINOID SCREEN NEGATIVE (Neg); URINE COCAINE SCREEN NEGATIVE (Neg); URINE METHADONE SCREEN NEGATIVE (Neg); URINE OPIATE SCREEN POSITIVE (Neg); URINE PHENCYCLIDINE SCREEN NEGATIVE (Neg)
[2022-08-14 20:25] VITALS: BP 145/61
--- NOTE | 2022-08-14 20:43 | NUR ---
PATIENT ON THE UNIT . VERY CONFUSED AND WITH MINIMAL RESPONSES. NOT ALERT AND ORIENTED. SEIZURE PRECAUTIONS AND BED ALARM APPLIED.
[2022-08-14] MEDS: K and/or MAG REPLACEMENT MC SCH (20:46)
[2022-08-14] MEDS: docusate sod 100mg capsule PO SCH (20:56)
[2022-08-15] VITALS (8 sets, daily range): BP systolic 112–159; BP diastolic 51–79
[2022-08-15] MEDS: HYDROcodone/acetaminophen 10/325mg tab PO PRN ×2 (05:43→22:02)
--- NOTE | 2022-08-15 06:21 | NUR ---
Problems reprioritized. Patient report given, questions answered & plan of care reviewed with ANSELMO JERRY.
--- NOTE | 2022-08-15 06:39 | NUR ---
Patient in room [facility]TH[facility] 4009. I have received report from Piper and had the opportunity to ask questions and assume patient care.
[2022-08-15] MEDS: docusate sod 100mg capsule PO SCH ×2 (08:00→20:00)
[2022-08-15] MEDS: K and/or MAG REPLACEMENT MC SCH ×2 (08:00→20:00)
[2022-08-15 08:03] LABS: ALANINE AMINOTRANSFERASE 10 U/L (12-78); ALBUMIN 3.3 G/DL (3.4-5.0); ALBUMIN/GLOBULIN RATIO 0.9 (1.1-1.5); ALKALINE PHOSPHATASE 101 IU/L (46-116); ANION GAP 11 (8-16); ASPARTATE AMINO TRANSFERASE 13 U/L (10-37); BILIRUBIN,TOTAL 0.5 MG/DL (0.1-1.0); BLOOD UREA NITROGEN 21 MG/DL (7-18); BUN/CREATININE RATIO 15.8 (10.0-20.0); CALCIUM 9.1 MG/DL (8.5-10.1); CHLORIDE 104 MMOL/L (99-107); CREATININE 1.33 MG/DL (0.40-0.90); GLUCOSE 107 MG/DL (70-104); POTASSIUM 3.8 MMOL/L (3.5-5.1); SODIUM 140 MMOL/L (135-145); TOTAL CARBON DIOXIDE 24.6 MMOL/L (24-32); eGFR 40 ML/MIN
[2022-08-15] MEDS: enoxaparin 40mg/0.4ml syringe SUBCUT SCH (08:22)
[2022-08-15 08:38] LABS: BASOPHILS % (AUTO) 0.3 % (0-1); EOSINOPHILS % (AUTO) 0.1 % (0-6); HEMATOCRIT 38.6 % (35.0-45.0); HEMOGLOBIN 12.6 g/dl (12.0-16.0); LYMPHOCYTES # (AUTO) 2.2 X10'3 (1.1-4.8); LYMPHOCYTES % (AUTO) 19.6 % (21-51); MEAN CORPUSCULAR HGB CONC 32.6 g/dL (33.0-36.5); MEAN CORPUSCULAR VOLUME 92.3 FL (78-98); MEAN PLATELET VOLUME 7.1 FL (7.4-10.4); MONOCYTES % (AUTO) 8.4 % (2-12); NEUTROPHILS # (AUTO) 8.1 X10'3 (1.8-7.7); NEUTROPHILS % (AUTO) 71.6 % (42-75); PLATELET COUNT 268 X10'3 (140-440); RED BLOOD COUNT 4.19 X10'6 (4.20-5.60); RED CELL DISTRIBUTION WIDTH 13.4 % (11.5-14.5); WHITE BLOOD COUNT 11.3 X10'3 (4.5-11.0)
[2022-08-15] MEDS ORDERED: LEVALBUTEROL TARTRATE PO PRN (09:55)
[2022-08-15] MEDS ORDERED: non-formulary drug (Acetaminophen (Tylenol Extra Strength) 1 TABLET) PO PRN (09:55)
[2022-08-15] MEDS ORDERED: docusate sod 100mg capsule PO PRN (09:55)
--- NOTE | 2022-08-15 10:09 | NUR ---
DM Consult: Pt A1C 5.2% highest A1C past 10 years 5.8% per EMR; unsure DM hx accuracy. Pt on regular diet which is appropriate; DO NOT recommend carb restricted diet. Addendum: 08/15/22 at [address] Amended: Links added.
[2022-08-15] MEDS: ondansetron/PF 4mg/2ml inj IV PRN ×2 (11:14→17:12)
[2022-08-15] MEDS: cyclobenzaprine 10mg tablet PO SCH ×2 (13:10→21:00)
[2022-08-15] MEDS: albuterol 2.5 MG/3 ML nebule NEB SCH ×2 (15:22→21:35)
--- NOTE | 2022-08-15 18:28 | NUR ---
Problems reprioritized. Patient report given, questions answered & plan of care reviewed with
[2022-08-15] MEDS: topiramate 25mg tablet PO SCH (20:00)
[2022-08-15] MEDS: montelukast 10mg tablet PO SCH (21:00)
[2022-08-15] MEDS: budesonide 0.5mg/2ml UD nebule IH SCH (21:35)
[2022-08-16] VITALS (8 sets, daily range): BP systolic 96–140; BP diastolic 49–66
[2022-08-16] MEDS: amitriptyline 50mg tablet PO SCH ×2 (00:23→20:10)
[2022-08-16] MEDS: docusate sod 100mg capsule PO SCH ×2 (00:23→20:00)
[2022-08-16] MEDS: albuterol 2.5 MG/3 ML nebule NEB SCH ×4 (02:58→19:55)
[2022-08-16] MEDS: HYDROcodone/acetaminophen 10/325mg tab PO PRN ×2 (05:06→12:29)
--- NOTE | 2022-08-16 06:50 | NUR ---
Patient in room [facility]TH[facility] 4009. I have received report from May and had the opportunity to ask questions and assume patient care.
[2022-08-16] MEDS: levoTHYROXINE 75mcg tablet PO SCH (07:26)
[2022-08-16 07:51] LABS: BASOPHILS # (AUTO) 0.1 X10'3 (0-0.2); BASOPHILS % (AUTO) 0.5 % (0-1); EOSINOPHILS # (AUTO) 0.1 X10'3 (0-0.9); EOSINOPHILS % (AUTO) 0.5 % (0-6); HEMATOCRIT 39.6 % (35.0-45.0); HEMOGLOBIN 12.8 g/dl (12.0-16.0); LYMPHOCYTES # (AUTO) 3.9 X10'3 (1.1-4.8); LYMPHOCYTES % (AUTO) 31.7 % (21-51); MEAN CORPUSCULAR HEMOGLOBIN 29.7 PG (27.0-31.0); MEAN CORPUSCULAR HGB CONC 32.3 g/dL (33.0-36.5); MEAN PLATELET VOLUME 6.9 FL (7.4-10.4); MONOCYTES # (AUTO) 0.9 X10'3 (0-0.9); NEUTROPHILS # (AUTO) 7.4 X10'3 (1.8-7.7); NEUTROPHILS % (AUTO) 60.3 % (42-75); PLATELET COUNT 295 X10'3 (140-440); RED CELL DISTRIBUTION WIDTH 14.2 % (11.5-14.5); WHITE BLOOD COUNT 12.4 X10'3 (4.5-11.0)
[2022-08-16] MEDS: POTASSIUM CHLORIDE 8 MEQ PO SCH (08:00)
[2022-08-16] MEDS: K and/or MAG REPLACEMENT MC SCH ×2 (08:00→20:00)
[2022-08-16 08:04] LABS: ALANINE AMINOTRANSFERASE 15 U/L (12-78); ALBUMIN 3.5 G/DL (3.4-5.0); ALBUMIN/GLOBULIN RATIO 0.9 (1.1-1.5); ALKALINE PHOSPHATASE 100 IU/L (46-116); ANION GAP 17 (8-16); ASPARTATE AMINO TRANSFERASE 18 U/L (10-37); BILIRUBIN,TOTAL 0.7 MG/DL (0.1-1.0); BLOOD UREA NITROGEN 25 MG/DL (7-18); BUN/CREATININE RATIO 14.5 (10.0-20.0); CALCIUM 8.9 MG/DL (8.5-10.1); CHLORIDE 102 MMOL/L (99-107); CREATININE 1.73 MG/DL (0.40-0.90); GLUCOSE 115 MG/DL (70-104); MAGNESIUM 2.1 MG/DL (1.5-2.4); POTASSIUM 3.5 MMOL/L (3.5-5.1); SODIUM 141 MMOL/L (135-145); TOTAL CARBON DIOXIDE 21.8 MMOL/L (24-32); TOTAL PROTEIN 7.3 G/DL (6.4-8.2); eGFR 30 ML/MIN
[2022-08-16] MEDS: verapamil SR 120mg (sust. release) tab PO SCH (08:21)
[2022-08-16] MEDS: spironolactone 25 MG tablet PO SCH (08:21)
[2022-08-16] MEDS: chlorthalidone 25mg tablet PO SCH (08:22)
[2022-08-16] MEDS: duloxetine 30mg CAPSULE.DR PO SCH (08:23)
[2022-08-16] MEDS: cyclobenzaprine 10mg tablet PO SCH ×3 (08:23→20:11)
[2022-08-16] MEDS: proMETHazine 25mg tablet PO SCH (08:23)
[2022-08-16] MEDS: lisinopril 10 MG tablet PO SCH (08:24)
[2022-08-16] MEDS: topiramate 25mg tablet PO SCH ×2 (08:24→20:10)
[2022-08-16] MEDS: enoxaparin 40mg/0.4ml syringe SUBCUT SCH (08:25)
[2022-08-16] MEDS: budesonide 0.5mg/2ml UD nebule IH SCH ×2 (08:53→19:55)
--- NOTE | 2022-08-16 11:13 | NUR ---
Re: [id number]. Tonya the stroke nurse said we can do tele-neuro for seizures but gave her number to discuss options Jackelin [phone]
[2022-08-16] MEDS: levetiracetam 250mg tablet PO SCH ×2 (12:12→20:10)
[2022-08-16] MEDS ORDERED: enoxaparin 30mg/0.3ml syringe SUBCUT SCH (14:42)
--- NOTE | 2022-08-16 16:04 | NUR ---
pt. refused 1500 SVN. No SOB observed
--- NOTE | 2022-08-16 18:15 | NUR ---
Problems reprioritized. Patient report given, questions answered & plan of care reviewed with
[2022-08-16] MEDS: montelukast 10mg tablet PO SCH (20:09)
[2022-08-16] MEDS: ondansetron/PF 4mg/2ml inj IV PRN (21:17)
[2022-08-17] MEDS: HYDROcodone/acetaminophen 10/325mg tab PO PRN ×2 (01:37→07:02)
[2022-08-17] MEDS: albuterol 2.5 MG/3 ML nebule NEB SCH ×2 (02:51→08:28)
[2022-08-17 06:00] VITALS: BP 105/56
--- NOTE | 2022-08-17 06:30 | NUR ---
RECEIVED REPORT FROM VLAD, RN
[2022-08-17] MEDS: levoTHYROXINE 75mcg tablet PO SCH (06:59)
[2022-08-17] MEDS: POTASSIUM CHLORIDE 8 MEQ PO SCH (07:42)
[2022-08-17] MEDS: levetiracetam 250mg tablet PO SCH (07:47)
[2022-08-17 07:50] LABS: BASOPHILS # (AUTO) 0.1 X10'3 (0-0.2); BASOPHILS % (AUTO) 0.7 % (0-1); EOSINOPHILS # (AUTO) 0.5 X10'3 (0-0.9); EOSINOPHILS % (AUTO) 4.5 % (0-6); HEMATOCRIT 34.7 % (35.0-45.0); HEMOGLOBIN 11.5 g/dl (12.0-16.0); LYMPHOCYTES # (AUTO) 3.2 X10'3 (1.1-4.8); LYMPHOCYTES % (AUTO) 30.3 % (21-51); MEAN CORPUSCULAR HEMOGLOBIN 30.5 PG (27.0-31.0); MEAN CORPUSCULAR VOLUME 92.5 FL (78-98); MONOCYTES # (AUTO) 0.9 X10'3 (0-0.9); MONOCYTES % (AUTO) 8.6 % (2-12); NEUTROPHILS # (AUTO) 5.8 X10'3 (1.8-7.7); NEUTROPHILS % (AUTO) 55.9 % (42-75); PLATELET COUNT 220 X10'3 (140-440); RED BLOOD COUNT 3.75 X10'6 (4.20-5.60); RED CELL DISTRIBUTION WIDTH 13.5 % (11.5-14.5); WHITE BLOOD COUNT 10.5 X10'3 (4.5-11.0)
[2022-08-17] MEDS: cyclobenzaprine 10mg tablet PO SCH ×2 (07:55→13:03)
[2022-08-17] MEDS: duloxetine 30mg CAPSULE.DR PO SCH (07:55)
[2022-08-17] MEDS: verapamil SR 120mg (sust. release) tab PO SCH (07:56)
[2022-08-17] MEDS: lisinopril 10 MG tablet PO SCH (07:56)
[2022-08-17] MEDS: spironolactone 25 MG tablet PO SCH (07:57)
[2022-08-17] MEDS: chlorthalidone 25mg tablet PO SCH (07:57)
[2022-08-17] MEDS: topiramate 25mg tablet PO SCH (07:58)
[2022-08-17] MEDS: proMETHazine 25mg tablet PO SCH (08:00)
[2022-08-17] MEDS: K and/or MAG REPLACEMENT MC SCH (08:00)
[2022-08-17] MEDS: docusate sod 100mg capsule PO SCH (08:00)
[2022-08-17 08:07] LABS: ALANINE AMINOTRANSFERASE 17 U/L (12-78); ALBUMIN/GLOBULIN RATIO 0.9 (1.1-1.5); ALKALINE PHOSPHATASE 86 IU/L (46-116); ANION GAP 10 (8-16); ASPARTATE AMINO TRANSFERASE 17 U/L (10-37); BILIRUBIN,TOTAL 0.8 MG/DL (0.1-1.0); BLOOD UREA NITROGEN 23 MG/DL (7-18); BUN/CREATININE RATIO 15.4 (10.0-20.0); CALCIUM 8.5 MG/DL (8.5-10.1); CHLORIDE 105 MMOL/L (99-107); CREATININE 1.49 MG/DL (0.40-0.90); GLUCOSE 91 MG/DL (70-104); MAGNESIUM 1.9 MG/DL (1.5-2.4); POTASSIUM 3.6 MMOL/L (3.5-5.1); SODIUM 142 MMOL/L (135-145); TOTAL CARBON DIOXIDE 27.5 MMOL/L (24-32); TOTAL PROTEIN 6.3 G/DL (6.4-8.2); eGFR 35 ML/MIN
[2022-08-17] MEDS: budesonide 0.5mg/2ml UD nebule IH SCH (08:28)
[2022-08-17] MEDS ORDERED: LEVE500T PO (08:49)
--- NOTE | 2022-08-17 10:58 | NUR ---
Paged Dr. Cano regarding patients request to speak with MD prior to discharge.
[2022-08-17 11:00] VITALS: BP 108/57
--- NOTE | 2022-08-17 14:31 | NUR ---
earlier i had sent 2 pages to hospitalist because even though the hospitalist was at the bedside and said hello to the patient, the hospitalist said that she had to go to a meeting and that she would be back to see patient, patient upset about hospitalist not up on floor to see her yet, patient is waiting for sister to pick patient up for discharge
--- NOTE | 2022-08-17 15:02 | NUR ---
patient d/c with instructions, understanding of instructions and w/all belongings including cell phone and cell metal lather, in wheelchair accompanied by sister to private vehicle to go home and f/u w/pcp and neurologist
[2022-08-17] MEDS ORDERED: metFORMIN 500mg tablet PO SCH (20:00)
== END 2022-08-17 15:00 | disposition home health service (06) | DRG 100 ==
LOC: ER 09:54 → ED HOLD 13:22 → UNDOADMIN 13:25 → EDBEDREQ 19:33 → ORTHO 4S 20:25 → ED HOLD 20:25
PROVIDERS: ADMIT Internal Medicine; ATTEND Internal Medicine
PROC: B3251ZZ Computerized Tomography (CT Scan) of Bilateral Common Carotid Arteries using Low Osmolar Contrast (ICD-10-PCS; 2022-08-14)
PROC: B32G1ZZ Computerized Tomography (CT Scan) of Bilateral Vertebral Arteries using Low Osmolar Contrast (ICD-10-PCS; 2022-08-14)
PROC: B32R1ZZ Computerized Tomography (CT Scan) of Intracranial Arteries using Low Osmolar Contrast (ICD-10-PCS; 2022-08-14)
PROC: B3281ZZ Computerized Tomography (CT Scan) of Bilateral Internal Carotid Arteries using Low Osmolar Contrast (ICD-10-PCS; 2022-08-14)
PROC: 5A09357 Assistance with Respiratory Ventilation, Less than 24 Consecutive Hours, Continuous Positive Airway Pressure (ICD-10-PCS; 2022-08-15)
PROC: 4A10X4Z Monitoring of Central Nervous Electrical Activity, External Approach (ICD-10-PCS; principal; 2022-08-16)
PROC: 5A09357 Assistance with Respiratory Ventilation, Less than 24 Consecutive Hours, Continuous Positive Airway Pressure (ICD-10-PCS; 2022-08-16)
PROC: 5A09357 Assistance with Respiratory Ventilation, Less than 24 Consecutive Hours, Continuous Positive Airway Pressure (ICD-10-PCS; 2022-08-17)
DX: R56.9 Unspecified convulsions (principal); N17.0 Acute kidney failure with tubular necrosis; Z68.43 Body mass index [BMI] 50.0-59.9, adult; J44.1 Chronic obstructive pulmonary disease with (acute) exacerbation; E11.9 Type 2 diabetes mellitus without complications; E66.01 Morbid (severe) obesity due to excess calories; E03.9 Hypothyroidism, unspecified; E78.5 Hyperlipidemia, unspecified; G24.01 Drug induced subacute dyskinesia; G47.33 Obstructive sleep apnea (adult) (pediatric); I10 Essential (primary) hypertension; Z79.51 Long term (current) use of inhaled steroids; Z79.84 Long term (current) use of oral hypoglycemic drugs; Z80.0 Family history of malignant neoplasm of digestive organs; Z82.3 Family history of stroke; Z82.5 Family history of asthma and other chronic lower respiratory diseases; Z87.891 Personal history of nicotine dependence; Z88.6 Allergy status to analgesic agent
CPT/HCPCS: 36415; 36600; 70450; 70496; 70498; 71045; 80053; 80305; 81003; 82803; 83605; 83735; 83880; 84145; 84484; 85018; 85025; 87081; 93005; 94640; 94660; 94760; 95813; 97116; 97161; 97530; 99285; A4615; A6212; G0378; J1650; J2405; J2930; J3490; Q0169; Q9967

== ENCOUNTER 2025-01-05 09:50 | Emergency (ER) | payer MEDICARE, MEDICAID ==
[~2025-01-05] VITALS: Ht 152.4 cm; Wt 154.6 kg
[~2025-01-05 09:50] MED LIST changes: -AMIT100T61 PO; +AMIT100T76 PO; -KEP500T PO; +LEVE500T PO; -METH-798 PO; -PROM25TA14 PO; -TOPI-253 PO; +TOPI-95 PO
[2025-01-05 09:58] VITALS: TEMP 97
--- NOTE | 2025-01-05 10:55 | RADIOLOGY REPORT ---
X-ray left shoulder Technique: AP internal and external rotation views REASON FOR EXAM: Shoulder Pain INDICATION: Shoulder Pain FINDINGS: No fractures or dislocations. No erosions or periosteal reaction. Articular surfaces are smooth. No abnormal soft tissue calcification IMPRESSION: 1. No acute bony pathology
--- NOTE | 2025-01-05 11:22 | Physician Documentation ---
History of Present Illness ~ Chief Complaint: Shoulder pain Stated Complaint: SHOULDER PAIN Time Seen by MD: 10:20 OK to notify your PCP?: Yes Primary Medical Doctor: Esther Source: patient, family Mode of Arrival: POV Exam Limitations: no limitations HPI 64-year-old female who is here due to left shoulder pain that started after she had a ground level fall back in September. She states that she did not end up having an x-ray back then as the pain was not to the point that it is now and thus she came to the ER today to get an x-ray and further evaluation. She states the pain is worse when she tries to lift her shoulder. She is right- handed. She has been requesting home physical therapy from her primary but has not yet gotten this ordered. She does take [place] at home for her pain which provide some relief and she is requesting [place] while she is here. She denies any associated neck or posterior shoulder pain. She denies chest pain or SOB. She reports that she had an MRI of her left shoulder which showed that she has a lot of arthritis in the shoulder but has never been seen by an orthopedist for it. Tetanus within 5 years?: No (unk) Medication Reconciliation Allergies: Coded Allergies: naproxen (Verified Allergy, Mild, 01/05/25) ITCHING NSAIDS (Non-Steroidal Anti-Inflamma (Verified Allergy, Unknown, ITCHING, RASH, 01/05/25) egg (Verified Allergy, Unknown, 01/05/25) Patient states she gets hives theophylline (Verified Adverse Reaction, Unknown, MARVIN-DUR REACTION "BUGS UNDER SKIN", 01/05/25) Uncoded Allergies: SEAFOOD (Allergy, Unknown, 01/05/25) Scheduled Amitriptyline HCl (Amitriptyline HCl), 1 TAB PO HS, (Reported) Chlorthalidone (Chlorthalidone), 1 TAB PO DAILY, (Reported) Duloxetine HCl (Cymbalta), 2 CAP PO DAILY, (Reported) Fluticasone/Salmeterol (Advair 250-50 Diskus), 1 PUFF PO BID, (Reported) Levetiracetam (Levetiracetam), 2 TAB PO Q12H Levothyroxine Sodium (Levothyroxine Sodium), 1 TAB PO DAILY, (Reported) Lisinopril (Lisinopril), 1 TAB PO DAILY, (Reported) Metformin HCl (Metformin HCl), 1 TAB PO BID, (Reported) Montelukast Sodium (Montelukast Sodium), 1 TAB PO QPM, (Reported) Potassium Chloride 8 MEQ* (Slow-K 8 Meq*), 1 CAP PO DAILY, (Reported) Spironolactone (Spironolactone), 1 TAB PO DAILY, (Reported) Topiramate (Topiramate), 1 TAB PO BID, (Reported) Verapamil Hcl (Verapamil Er), 1 CAP PO DAILY, (Reported) Scheduled PRN Acetaminophen (Tylenol Extra Strength), 1 TABLET PO BID PRN for pain, (Reported) Docusate Sodium (Docusate Sodium), 1 CAP PO HS PRN for constipation, (Reported) Hydrocodone Bit/Acetaminophen 10/325 MG* ([place] 10/325 MG*), 1 TAB PO every 4 to 6 hours PRN for moderate or severe pain, (Reported) Levalbuterol Tartrate (Levalbuterol Tartrate Hfa), 2 PUFFS PO Q4H PRN for SOB or wheezing, (Reported) Past Medical History Past Medical History: Hypertension, Asthma, Bronchitis, COPD, Sleep Apnea, Diabetes, Chronic Back Pain, Osteoarthritis Past Surgical History: other Patient History: (COPD) Chronic obstructive lung disease MOTHER (heavy smoker), , Cause: COPD (chronic obstructive pulmonary disease) (CVA) Cerebrovascular accident FATHER, , Cause: Colon cancer, Onset:30's - 40 FH: colon cancer FATHER, , Cause: Colon cancer Alcohol Use: None Drug Use: none Lives with: Family Lives In: Home Review of Systems All Other Systems at this time: Reviewed and Negative Physical Exam Vital Signs: Temperature: 97.0, Source: Temporal, Heart Rate: 82, Respiratory Rate: 24, BP: 134/50, Pulse Oximetry: 93, Weight: 154.550 Oxygen Flow Rate: 0 Physical Exam GENERAL: Alert, no acute distress. HEENT: NCAT, EOMI, PERRL, normal oropharynx, moist oral mucosa. NECK: Supple, trachea midline. CARDIAC: Regular rate and rhythm, no murmurs, rubs, or gallops. PV: Equal distal RADIAL pulses. RESPIRATORY: Equal breath sounds, clear to auscultation bilaterally, no respiratory distress. MUSCULOSKELETAL: TTP OVER THE LEFT AC JOINT, DECREASED AROM OF LEFT SHOULDER DUE TO PAIN. NTTP OVER POSTERIOR SHOULDER OR CERVICAL SPINE. NEUROLOGICAL: Awake, alert, and oriented x 3. SKIN: Warm/dry, no pallor, no rash. PSYCH: Alert and appropriate. Affect congruent with mood. Speech is clear. Good eye contact. Progress Results/Orders Results/Orders Orders - HUNTER CINTRON Hydrocodone/Apap 10/325 ([place] 10/325mg (01/05/25 11:20) Vital Signs 01/05/25 09:58 Temp 97.0 Pulse 82 Resp 24 B/P (MAP) 134/50 Pulse Ox 93 O2 Flow Rate 0 Medical Decision Making Additional information obtaine: N/A Findings N/A Differential Dx:Considerations: Include: AC separation, Adhesive capsulitis, arthritis, Bicipital tendonitis, Calcific tendonitis, Cervical disc disease, Contusion, Dislocation, Fracture: Humerus, Fracture: Scapula, Fracture: Clavicle, Gallbladder Disease, Hematoma, Impingement syndrome, Myocardial infarction, Neurovascular Injury, Rotator cuff injury, SC dislocation, Sprain, Subacromial bursitis, other Additional Comments X-ray left shoulder Technique: AP internal and external rotation views REASON FOR EXAM: Shoulder Pain INDICATION: Shoulder Pain FINDINGS: No fractures or dislocations. No erosions or periosteal reaction. Articular surfaces are smooth. No abnormal soft tissue calcification IMPRESSION: 1. No acute bony pathology Departure Time of Disposition: 11:22 Disposition: 01 HOME / SELF CARE / HOMELESS Impression: Primary Impression: Shoulder pain Qualified Codes: M25.512 - Pain in left shoulder Condition: Stable Discharge Instructions: Shoulder Pain Additional Instructions: F/U WITH PCP ABOUT HOME PHYSICAL THERAPY AND POSSIBLY OCCUPATIONAL THERAPY SINCE YOU ARE CONSIDERED HOMEBOUND NO ACUTE FINDINGS ON XRAY F/U WITH RE: REFERRAL TO ORTHOPEDIST BASED OFF OF PREVIOUS MRI YOU HAD ON YOUR SHOULDER ORDERED BY YOUR PCP IF NOT IMPROVED WITH PHYSICAL THERAPY X-ray left shoulder Technique: AP internal and external rotation views REASON FOR EXAM: Shoulder Pain INDICATION: Shoulder Pain FINDINGS: No fractures or dislocations. No erosions or periosteal reaction. Articular surfaces are smooth. No abnormal soft tissue calcification IMPRESSION: 1. No acute bony pathology Referrals: NO PRIMARY CARE PROVIDER (PCP) Education Educated: Patient Educated regarding: diagnosis, treatment, need for follow up Signature Scribe Signature: X Attestation: HUNTER SANDERSON Jan 05, 2025 11:22
[2025-01-05] MEDS: HYDROcodone/acetaminophen 10/325mg tab PO ONE (11:23)
[2025-01-05 11:35] VITALS: BP 101/57; PULSE 86; RESP 16; O2SAT 95
== END 2025-01-05 11:36 | disposition home or self-care (01) ==
LOC: ER 09:51
DX: M25.512 Pain in left shoulder (principal); J44.9 Chronic obstructive pulmonary disease, unspecified; G89.29 Other chronic pain; E11.9 Type 2 diabetes mellitus without complications; I10 Essential (primary) hypertension; G47.30 Sleep apnea, unspecified; Z91.0120 Allergy to eggs, unspecified; Z88.8 Allergy status to other drugs, medicaments and biological substances; Z79.899 Other long term (current) drug therapy; Z79.84 Long term (current) use of oral hypoglycemic drugs
CPT/HCPCS: 73030; 99283; A4565; A4615